=== PATIENT | male | born 1975 | race African-American/Black ===

== ENCOUNTER 2020-07-14 12:58 | Emergency (ER) | payer BC, MEDICAID ==
[~2020-07-14] VITALS: Ht 172.7 cm; Wt 90.0 kg
[2020-07-14] MEDS ORDERED: MORPHINE SULFATE 4 MG/ML CPJ (NOT FOR IM USE) IV STA (13:31)
[2020-07-14 13:55] LABS: BASOPHILS % 0.5 % (0.0-2.0); EOSINOPHILS % 1.1 % (0.0-5.0); HEMATOCRIT. 41.9 % (42.0-52.0); HEMOGLOBIN. 13.9 g/dL (14.0-18.0); LYMPHOCYTES % 35.3 % (20.0-50.0); MEAN CORPUSCULAR HEMOGLOBIN 29.1 pg (28.0-32.0); MEAN CORPUSCULAR VOLUME 87.7 fL (80.0-94.0); MEAN PLATELET VOLUME 9.2 fl (7.4-10.4); MONOCYTES % 6.1 % (2.0-8.0); PLATELET 177 x1000/uL (130-400); RED BLOOD CELL COUNT 4.77 mill/uL (4.7-6.1); RED CELL DISTRIBUTION WIDTH 13.1 % (11.6-14.6)
[2020-07-14 13:58] LABS: CLARITY URINE CLEAR (CLEAR); COLOR URINE ORANGE (YELLOW); KETONES URINE NEGATIVE (NEGATIVE); LEUKOCYTE ESTERASE URINE NEGATIVE (NEGATIVE); NITRITE URINE NEGATIVE (NEGATIVE); OCCULT BLOOD URINE 3+ (NEGATIVE); PH URINE 5.5 (4.5-8.0); PROTEIN URINE TRACE (NEGATIVE); SPECIFIC GRAVITY URINE 1.016 (1.005-1.030); UROBILINOGEN URINE 0.2 E.U./dL (0.2-1.0)
[2020-07-14 14:02] LABS: CHLORIDE 105 mEq/L (98-107)
[2020-07-14 14:05] LABS: PROTHROMBIN TIME 10.8 sec (9.6-11.0)
[2020-07-14] MEDS ORDERED: FLUCONAZOLE 100MG TABLET PO ONE (18:00)
[2020-07-14] MEDS ORDERED: FLUCONAZOLE 150MG TABLET PO NR (18:30)
[2020-07-14 19:08] VITALS: BP 122/68
[2020-07-14] MEDS ORDERED: IOHEXOL-350 100 ML BOTTLE ONE (23:20)
== END 2020-07-14 19:16 | disposition home or self-care (01) ==
LOC: ER 12:58 → CANBEDREQ 19:17
DX: R10.9 Unspecified abdominal pain (principal); E78.00 Pure hypercholesterolemia, unspecified; I10 Essential (primary) hypertension
CPT/HCPCS: 36415; 71045; 71275; 74174; 80053; 81003; 83690; 85025; 85610; 86850; 86900; 86901; 93005; 96374; 99285; J2270; Q9967

== ENCOUNTER 2021-09-02 17:32 | Emergency (ER) | payer SELFPAY ==
[~2021-09-02] VITALS: Ht 180.3 cm; Wt 109.0 kg
[2021-09-02 17:55] VITALS: BP 139/80
[2021-09-02] MEDS ORDERED: BENZ9GEL2 TP (19:47)
== END 2021-09-02 20:05 | disposition home or self-care (01) ==
LOC: ER 17:32
DX: K64.9 Unspecified hemorrhoids (principal); K62.5 Hemorrhage of anus and rectum; E78.00 Pure hypercholesterolemia, unspecified; I10 Essential (primary) hypertension
CPT/HCPCS: 99282